=== PATIENT | female | born 1985 | race Hispanic/Latino ===

== ENCOUNTER 2017-11-14 18:45 | Emergency (ER) | payer SELFPAY ==
[2017-11-14] MEDS ORDERED: Ketorolac Tromethamine 30 MG/ML VIAL ONE (19:17)
[2017-11-14] MEDS ORDERED: Ondansetron HCl/PF 4 MG/2 ML Vial ONE ×2 (19:17→20:43)
[2017-11-14 19:28] LABS: Bilirubin Negative (Negative); Blood, Urine Small (Negative); Clarity Clear (Clear); Glucose, Urine (Dipstick) Negative (Negative); Leukocyte Negative (Negative); Nitrite Negative (Negative); Protein, Urine (Dipstick) Negative (Neg-Trace); Urobilinogen 0.2 mg/dL (0.2-1.0)
[2017-11-14 19:48] LABS: #Basophils 0.1 thou/uL (0.0-0.2); #Eosinphils 0.2 thou/uL (0.0-0.7); #Lymphocytes 1.6 thou/uL (1.20-3.40); #Monocytes 0.8 thou/uL (0.11-0.59); #Neutrophils 7.5 thou/uL (1.40-6.50); %Basophils 0.9 % (0.0-1.0); %Eosinophils 1.6 % (0.0-10.0); %Lymphocytes 16.3 % (21.0-51.0); %Monocytes 7.5 % (0.0-10.0); %Neutrophils 73.8 % (42.0-75.0); Hemoglobin 13.1 g/dL (12.0-16.0); Mean Corpuscular HGB CONC 32.1 g/dL (32.0-36.0); Mean Corpuscular Hemoglobin 28.1 pg (27.0-31.0); Mean Corpuscular Volume 87.5 fL (78.0-98.0); Mean Platelet Volume 7.8 fL (7.4-10.4); Platelet Count 303 thou/uL (130-400); RBC Distribution Width 11.9 % (11.5-14.5); Red Blood Cell (RBC) Count 4.68 mill/uL (4.20-5.40); White Blood Cell (WBC) Count 10.1 thou/uL (4.8-10.8)
[2017-11-14 19:50] LABS: Bacteria/HPF 1+ HPF (None Seen); RBC/HPF 0-3 HPF (0-3); Squamous Epithelial 0-3 HPF (0-3); WBC/HPF 0-3 HPF (0-3)
[2017-11-14 19:51] LABS: Pregnancy Test - Urine (BHCG) Negative (Negative); Pregu Control Background? CLEAR/WHITE (CLR/WHITE); Pregu Control Bar Appear? YES (CONTROL BAR)
[2017-11-14 20:04] LABS: ALT (SGPT) 35 U/L (8-55); AST (SGOT) 25 U/L (5-34); Albumin 4.3 g/dL (3.5-5.0); Alkaline Phosphatase 88 U/L (40-150); Anion Gap 14 mmol/L (10-20); BUN (Urea Nitrogen) 15 mg/dL (7.0-18.7); Bilirubin, Total 0.3 mg/dL (0.2-1.2); CK (CPK) 74 U/L (29-168); Calc. Creatinine Clearance 0 mL/min (70-130); Calcium 9.7 mg/dL (7.8-10.44); Carbon Dioxide 24 mmol/L (22-29); Chloride 105 mmol/L (98-107); Estimated GFR-MDRD Greater than 90; Globulin 3.2 g/dL (2.4-3.5); Glucose 104 mg/dL (70-105); Potassium 4.4 mmol/L (3.5-5.1); Protein, Total 7.5 g/dL (6.0-8.3); Sodium 139 mmol/L (136-145)
--- NOTE | 2017-11-14 20:30 | CT ---
HEAD CT NONCONTRAST: 11/14/17 INDICATION: Headache. No prior comparison. FINDINGS: Ventricular system is normal in size. Septum pellucidum and third ventricle are midline. No intracran ial hemorrhage, mass effect or midline shift. IMPRESSION: No acute intracranial abnormality. POS: [facility]
[2017-11-14 20:40] LABS: CKMB 0.5 ng/mL (0-6.6); Troponin I Less than 0.010 ng/mL (< 0.028)
--- NOTE | 2017-11-14 20:47 | RAD ---
TWO VIEW CHEST SERIES: 11/14/17 INDICATION: Chest pressure, chest pain. FINDINGS: Lungs are clear. No effusion or pneumothorax. Cardiac silhouette is within normal limits of size. IMPRESSION: No focal consolidation. POS: [facility]
== END 2017-11-14 21:23 | disposition home or self-care (01) ==
LOC: NAV ERS 18:45
DX: B34.9 Viral infection, unspecified (principal); A08.4 Viral intestinal infection, unspecified
CPT/HCPCS: 70450; 71046; 80053; 81003; 81015; 81025; 82550; 82553; 84484; 85025; 93005; 96374; 96375; 96376; J1885; J2405